=== PATIENT | female | born 1985 | race Caucasian/White ===

== ENCOUNTER 2019-07-17 21:40 | Emergency (ER) | payer OTHER ==
[~2019-07-17] VITALS: Ht 157.5 cm; Wt 52.6 kg
[~2019-07-17 21:40] MED LIST: [UNRECOGNIZED DRUG - OTHER]
== END 2019-07-18 01:53 | disposition home or self-care (01) ==
LOC: ER 21:40
DX: O20.0 Threatened abortion (principal)

== ENCOUNTER 2020-04-21 15:43 | Inpatient (IN) | payer OTHER ==
[~2020-04-21] VITALS: Ht 157.5 cm; Wt 65.8 kg
[2020-05-13] MEDS ORDERED: PRENATAL TABLE1 EAC1 PO (11:12)
== END 2020-05-15 14:23 | disposition home or self-care (01) | DRG 807 ==
LOC: LDR 05-13 10:09 → SURG-SUITE 05-13 10:09 → SURH 05-18 10:30
PROVIDERS: ADMIT Obstetrics & Gynecology Maternal & Fetal Medicine; ATTEND Obstetrics & Gynecology Maternal & Fetal Medicine
PROC: 10E0XZZ Delivery of Products of Conception, External Approach (ICD-10-PCS; principal; 2020-05-13)
PROC: 0HQ9XZZ Repair Perineum Skin, External Approach (ICD-10-PCS; 2020-05-13)
PROC: 10907ZC Drainage of Amniotic Fluid, Therapeutic from Products of Conception, Via Natural or Artificial Opening (ICD-10-PCS; 2020-05-13)
PROC: 3E033VJ Introduction of Other Hormone into Peripheral Vein, Percutaneous Approach (ICD-10-PCS; 2020-05-13)
PROC: 4A1HXCZ Monitoring of Products of Conception, Cardiac Rate, External Approach (ICD-10-PCS; 2020-05-13)
DX: O70.0 First degree perineal laceration during delivery (principal); Z37.0 Single live birth; Z3A.39 39 weeks gestation of pregnancy